=== PATIENT | male | born 1965 | race Caucasian/White ===

== ENCOUNTER 2019-06-01 09:10 | Day surgery (SDC) | payer BC ==
[2019-06-01 09:48] LABS: Absolute Lymphocytes (CBC) 1.5 K/uL (0.7-4.9); Basophils % 0.8 % (0-1.3); Lymphocytes % 18.6 % (15.3-44.8); MPV 7.8 fL (7.6-11.3)
[2019-06-01] MEDS ORDERED: Ringers Lactate 1,000 ML IV ONE (09:55)
[2019-06-01] MEDS ORDERED: CEFAZOLIN/SWI 1gm 1 GM/10 ML SYR ONE (09:55)
[2019-06-01 10:03] LABS: Potassium 4.4 mmol/L (3.5-5.1)
[2019-06-01] MEDS ORDERED: BUPIVACAINE 0.5% PF 10 ML VIAL ONE (10:11)
[2019-06-01] MEDS ORDERED: FENTANYL CITR 100 MCG/2 ML ONE (10:20)
[2019-06-01] MEDS ORDERED: PROPOFOL 200 MG/20 ML VIAL IV ONE ×2 (10:21→10:49)
[2019-06-01] MEDS ORDERED: LIDOCAINE 2% MPF 5 ML VIAL ONE (10:21)
[2019-06-01] MEDS ORDERED: MIDAZOLAM HCL 2 MG/2 ML INJ ONE ×2 (10:21→12:09)
--- NOTE | 2019-06-01 10:25 | RAD REPORT ---
EXAM DESCRIPTION: RAD - Chest Pa And Lat (2 Views) - 06/01/2019 9:45 am CLINICAL HISTORY: PREOP Chest pain. COMPARISON: No comparisons FINDINGS: The lungs are clear. The heart is normal in size. No displaced fractures. Small to moderat e hiatal hernia.
[2019-06-01] MEDS ORDERED: CEFAZOLIN SODIUM 1 GM/VIAL ONE (11:02)
[2019-06-01] MEDS ORDERED: ONDANSETRON 4 MG/2 ML VIAL ONE (11:03)
--- NOTE | 2019-06-01 11:04 | P.BOP ---
Preoperative diagnosis: right index finger cellulitis, abscess, necrotic wound Postoperative diagnosis: same Primary procedure: I & D R index finger abscess with excisional debridement necrotic subQ Estimated blood loss: <10cc Specimen: pus and necrotic tissue Findings: pus and necrotic tissue Anesthesia: General Complications: None Transferred to: Recovery Room Condition: Good
--- NOTE | 2019-06-01 16:00 | EKG ---
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
--- NOTE | 2019-06-02 00:49 | OP ---
Date of Procedure: 06/01/2019 Surgeon: Amari Paulson MD Preoperative Diagnosis: Right index finger cellulitis, abscess, and necrotic wound. Postoperative Diagnosis: Right index finger cellulitis, abscess, and necrotic wound. Procedures: Incision and drainage of right index finger abscess with excisional debridement of necro tic tissue down to subcutaneous area. Findings: Pus and necrotic tissue. Anesthesia: General plus local. Indications: This is a case of a male, who comes to us with infection of the index finger, increasin g in size with tenderness and redness. Patient has been on antibiotics, but has not improved. So we offer him incision and drainage. The area is very tender, so we offered him that under anesthesia. The benefits, alternatives, and risks were explained which include but are not limited to infection, bleeding, damage to adjacent structures, anesthesia complication, nonhealing wound, ID, and even jerson th. He also understands this may not relieve any symptoms. He might need more than one surgical int ervention. He will require wound care. He signed a consent. Description Of Procedure: Patient was brought to the operating room, placed in supine position. Ane sthesia was done without complication. The area of concern was marked by me and the patient in the h olding room. The hand was prepped and draped in a sterile fashion. Local anesthesia was applied fol lowed by sharp incision of the skin. Immediately, a large amount of pus was obtained, cultured and c leaned. Then, we proceeded to clean the necrotic tissue present and some of the base of the nail. T he necrotic tissue was removed. Hemostasis was obtained. The area was irrigated and then the packed with wet-to-dry dressing. The patient tolerated the procedure well. Patient was sent to Recovery i n stable condition. Disposition: Home. Activity: As tolerated. No heavy lifting. Followup: Follow up in my office in 1 week. Call for an appointment at [phone]. Medications: Tylenol No. 3 q.4 hours p.r.n. pain. Patient already have the antibiotics. Patient wi ll also use Bactroban ointment over the area 2-3 times a day. May clean the area with soap and water . DENIA/KATHLEEN Voice ID: [id number] Report ID: [id number]
== END 2019-06-01 13:30 | disposition home or self-care (01) ==
LOC: OR 09:10
PROVIDERS: ATTEND Surgery
PROC: 0JBJ0ZZ Excision of Right Hand Subcutaneous Tissue and Fascia, Open Approach (ICD-10-PCS; principal; 2019-06-01 10:30)
DX: L03.011 Cellulitis of right finger (principal); E78.00 Pure hypercholesterolemia, unspecified
CPT/HCPCS: 93005; 87070; 85025; 80048; 36415; 87205; 88304; 87075; 71046; 11042; J2704 ×2; J2250 ×2; J3010; J0690 ×2; J2405